=== PATIENT | female | born 1980 | race Hispanic/Latino ===

== ENCOUNTER 2018-01-22 16:30 | Inpatient (IN) | payer BC ==
[2018-01-26 16:47] VITALS: BMI 24.7
--- NOTE | 2018-01-27 15:28 | HP ---
DATE OF ADMISSION: 01/28/2018 SCHEDULED PROCEDURE: Total laparoscopic hysterectomy with bilateral salpingectomy. HISTORY OF PRESENT ILLNESS: Ms. Acosta is a 37-year-old G5, P4, AB 1 previous x4 who has a history of an intramural and subserosal posterior lower uterine segment fibroid that has grown ove r the past year. She has persistent dysmenorrhea and menorrhagia associated with it. She desires de finitive surgical management. 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 PAST MEDICAL HISTORY: Negative. PAST SURGICAL HISTORY: Gynecologic only. ALLERGIES: Denies. MEDICATIONS: None. SOCIAL HISTORY: Denies tobacco, alcohol, IV drug abuse. FAMILY HISTORY: Noncontributory. REVIEW OF SYSTEMS: Noncontributory. PHYSICAL EXAMINATION: GENERAL: female, 5 feet and 2, 145, BMI 26. VITAL SIGNS: Blood pressure 110/60, pulse 72, respirations 18. HEENT: Within normal limits. LUNGS: Clear to auscultation bilaterally. HEART: Regular rhythm. BREASTS: Soft bilaterally. ABDOMEN: Soft, nontender, no rebound or guarding. PELVIC: Vulva without lesions. Vagina without discharge. Cervix parous, uterus is anteverted with a posterior cul-de-sac mass palpable, approximately 8 week size. Adnexa no masses. EXTREMITIES: Without clubbing, cyanosis or edema. IMAGING DATA: Ultrasound in 10/2017 revealed a uterus measuring 8 x 6 cm, normal appearing right and left adnexa and a 4 cm posterior lower uterine segment, upper cervical fibroid that was subserosal i n nature, but not pedunculated. IMPRESSION: Persistent dysmenorrhea and menorrhagia associated with a posterior lower uterine segmen t fibroid. PLAN: Discussed with patient option, location, and age makes myomectomy an appropriate surgical proc edure. We will proceed with total laparoscopic hysterectomy with bilateral salpingectomy. Patient u nderstands risks and benefits of procedure and received appropriate antibiotic prophylaxis.
[2018-01-28] MEDS ORDERED: CeleCOXIB 100 MG CAP ONE (06:31)
[2018-01-28] MEDS ORDERED: Famotidine/PF 20 mg/2ml Vial ONE (06:31)
[2018-01-28] MEDS ORDERED: CEFAZOLIN/Water 2 GM/20 ML SYRINGE ONE (06:31)
[2018-01-28] MEDS ORDERED: Gabapentin 300 MG CAP ONE (06:31)
[2018-01-28] MEDS ORDERED: Bupivacaine HCl 0.5%/Epinephrine 1:200,000/PF 30 ml Vial ONE (07:04)
[2018-01-28] MEDS ORDERED: Fentanyl 100 MCG/2 ML VIAL ONE ×3 (07:35→10:26)
[2018-01-28] MEDS ORDERED: Ondansetron HCl/PF 4 MG/2 ML Vial IVP PRN ×2 (09:33→11:12)
[2018-01-28] MEDS ORDERED: Promethazine HCl 25 MG/ML VIAL IM PRN (09:33)
[2018-01-28] MEDS ORDERED: Promethazine HCl 25 MG/ML VIAL SLOW IVP PRN (09:33)
[2018-01-28] MEDS ORDERED: Zolpidem Tartrate 5 MG TAB PO PRN (11:12)
[2018-01-28] MEDS ORDERED: Simethicone Chewable 80 MG TAB PO PRN (11:12)
[2018-01-28] MEDS ORDERED: HYDROcodone/Acetaminophen 10/325 mg Tablet PO PRN ×2 (11:12)
[2018-01-28] MEDS ORDERED: Ketorolac Tromethamine 30 MG/ML VIAL IVP SCH (12:00)
[2018-01-28] MEDS: Sodium Chloride 0.9% 1,000 ML IV SCH ×2 (12:08→21:06)
--- NOTE | 2018-01-28 13:46 | OP ---
DATE OF PROCEDURE: 01/28/2018 PREOPERATIVE DIAGNOSES: Menorrhagia, dysmenorrhea, posterior lower uterine segment fibroid. POSTOPERATIVE DIAGNOSES: Menorrhagia, dysmenorrhea, posterior lower uterine segment fibroid. PROCEDURES: Total laparoscopic hysterectomy, bilateral salpingectomy. SURGEON: Manfred Gilliam M.D. SOCK AND STOCKING IRONER: Leigh So D.O. ANESTHESIA: General endotracheal, . ESTIMATED BLOOD LOSS: 100 mL MEDICATIONS: Two grams Ancef preincision. DVT PROPHYLAXIS: SCDs. DRAINS: Snyder to gravity. Approximately 350 mL byron and intraoperatively. OPERATIVE FINDINGS: 1. Approximately 8-10 weeks size uterus with 4-5 cm posterior lower uterine segment fibroid. 2. Dense adhesions of the bladder to the lower uterine segment, cervix, and upper vagina, status pos t x4. 3. Minimal omental adhesions to the anterior abdominal wall. 4. Clear urine, counts correct, hemostasis at the end of the procedure. DISPOSITION: To the recovery room in good condition. DESCRIPTION OF OPERATIVE PROCEDURE: After obtaining proper consent, the patient was taken to the ope rating room where general endotracheal anesthesia was achieved without difficulty. The patient was p repped and draped in dorsal lithotomy position. Snyder catheter placed. Side-hand speculum placed in vagina. Cervix identified, grasped with tooth tenaculum, sounded to 9-10 cm. A 4 cm vaginal deline ator and 8 cm obturator was placed in the uterus with the LEONELA manipulator. Speculum and tenaculum r emoved. Operative technique discussed. I turned my attention to the abdominal portion of the proced ure. A 5 mL of Marcaine injected at 2 cm above the umbilicus. The patient had previous vertical mid line skin incisions. A 10 mm skin incision made and a Veress needle was placed inside the abdominal cavity and confirmation of entry into the peritoneal cavity via saline drop test. Insufflation elba ed out with carbon dioxide to a max pressure of 15, volume approximately 3 liters. A 12 mm trocar wa s then introduced and confirmation entry into the peritoneal cavity without trauma to the underlying viscera was noted. Right and left lateral da King robot, trocars were placed lateral to the epigast cholo vessels and an 11 mm instruction assistant principal port in the right upper quadrant was placed. The patient was plac ed in steep Trendelenburg position and the da King robot docked with monopolar scissors in the right hand and bipolar fenestrated forceps in the left. The omental adhesions were taken down. Uterus wa s mobilized and the fallopian tube on the patient's right was excised, coagulating and transecting th rough the mesosalpinx. The utero-ovarian ligament was then coagulated and transected through the bro ad and the round. Attention was turned to the patient's left. The identical procedure was carried o ut. Anteriorly, dense adhesions of the bladder were noted to the lower uterine segment and cervix. These were taken down in a stepwise manner insufflating and deflating the bladder several times throu ghout to delineate its location and to avoid injury. Because of the dense adhesions, decision was ma de to enter into the cervical vesicle and vaginal vesicle space laterally. The cardinal ligaments we re coagulated and transected down the level of the internal cervical os. It was opened up and the ut erine vessels identified and ureters were noted to be well lateral. These were coagulated and transe cted, quite a bit of difficulty was encountered, right greater than left, secondary to the low positi on of the fibroid just above the internal cervical os posteriorly with multiple collaterals. These w ere, however, identified and taken down. Once the clear spaces laterally were reached, ability to de velop the fascial plane between the bladder and the cervix and upper vagina was facilitated and was t aken down to the appropriate level well below the vagina and the level of the incision for amputation of the specimen. Posteriorly, the peritoneum was taken off at the level of the cervical vaginal int erface and anteriorly as well. Vagina was entered anteriorly at 12 o'clock, posterior at 6 o'clock e xtended from 12 to 10 and 12 to 2 and from 6 to 4 and 6 to 8. The cardinal ligaments in the corners were then taken down with coagulation and transected until the specimen was amputated. It was then p ulled the vagina to maintain pneumoperitoneum. Suction irrigation was carried out and all area s of significant bleeding on the cuff were hemostatic using bipolar cautery and the cuff was then stephany sed using a running continuous 0 PDS Stratafix in a 2-layer closure technique. Suction irrigation wa s carried out. Good hemostasis noted on all pedicles. Tisseel was applied. All instruments were re moved. The abdomen was desufflated of carbon dioxide after undocking the da King, trocars removed. Fascia reapproximated at the supraumbilical trocar using an 0 Vicryl suture on a UR-5 needle and the skin reapproximated x4 using 4-0 Monocryl and Dermabond. Specimen removed from the vagina inspected and noted to be dry. Clear urine noted. The patient awakened, extubated, and taken to recovery [facility] in good condition.
[2018-01-28] MEDS: Ketorolac Tromethamine 30 MG/ML VIAL IVP SCH ×2 (14:58→21:03)
[2018-01-28] MEDS: Gabapentin 300 MG CAP PO SCH (21:02)
[2018-01-29] MEDS: Sodium Chloride 0.9% 1,000 ML IV SCH (01:58)
[2018-01-29] MEDS: Ketorolac Tromethamine 30 MG/ML VIAL IVP SCH ×2 (02:02→08:37)
[2018-01-29 06:45] LABS: Hemoglobin 10.2 g/dL (12.0-16.0); Mean Corpuscular HGB CONC 32.3 g/dL (32.0-36.0); Mean Corpuscular Hemoglobin 27.6 pg (27.0-31.0); Mean Corpuscular Volume 85.6 fL (78.0-98.0); Mean Platelet Volume 7.7 fL (7.4-10.4); Platelet Count 218 thou/uL (130-400); RBC Distribution Width 13.1 % (11.5-14.5); White Blood Cell (WBC) Count 13.7 thou/uL (4.8-10.8)
[2018-01-29] MEDS: Gabapentin 300 MG CAP PO SCH (08:36)
[2018-01-29 08:52] VITALS: BP 103/56; TEMP 97.8
--- NOTE | 2018-01-29 13:09 | DIS ---
DATE OF ADMISSION: 01/28/2018 DATE OF DISCHARGE: 01/29/2018 IN HOSPITAL PROCEDURE: Total laparoscopic hysterectomy, bilateral salpingectomy. SUMMARY OF HOSPITAL COURSE: The patient had an unremarkable surgical event with a TLH da King bilat eral salpingectomy secondary to fibroids and menorrhagia. Hematocrit decreased from 36% preoperative ly to 31-32% postoperatively. Vital signs are stable. Urine output was excellent, urine was clear. The Snyder was discontinued 4 hours postoperatively and patient was able to void with ease. She was tolerating p.o., ambulating and passing gas. PHYSICAL EXAMINATION: LUNGS: Physical examination revealed clear lungs. ABDOMEN: Soft, nontender, no rebound or guarding. Incisions intact, perineum dry. EXTREMITIES: Without clubbing, cyanosis or edema. IMPRESSION: Doing well status post total laparoscopic hysterectomy, bilateral salpingectomy, postop day #1. PLAN: Discharge home. Vimal Elder at [place] [facility] [place]. Follow up in 4 weeks.
== END 2018-01-29 10:10 | disposition home or self-care (01) | DRG 743 ==
LOC: SURG A 01-28 06:23 → 3SE 01-28 10:13
PROVIDERS: ADMIT Obstetrics & Gynecology; ATTEND Obstetrics & Gynecology
PROC: 0UT94ZZ Resection of Uterus, Percutaneous Endoscopic Approach (ICD-10-PCS; principal; 2018-01-28)
PROC: 0UT78ZZ Resection of Bilateral Fallopian Tubes, Via Natural or Artificial Opening Endoscopic (ICD-10-PCS; 2018-01-28)
PROC: 8E0W4CZ Robotic Assisted Procedure of Trunk Region, Percutaneous Endoscopic Approach (ICD-10-PCS; 2018-01-28)
DX: D25.1 Intramural leiomyoma of uterus (principal); N92.1 Excessive and frequent menstruation with irregular cycle; N94.6 Dysmenorrhea, unspecified; N32.89 Other specified disorders of bladder; N73.6 Female pelvic peritoneal adhesions (postinfective); N88.1 Old laceration of cervix uteri; N89.5 Stricture and atresia of vagina
CPT/HCPCS: 36415; 85027; 86850; 86900; 86901; 88307; A4216; J0670; J1885; J2270; J3010; S0028

== ENCOUNTER 2018-01-26 15:30 | Outpatient (CLI) | payer BC ==
[2018-01-26 17:11] LABS: Hemoglobin 12.3 g/dL (12.0-16.0); Mean Corpuscular HGB CONC 33.3 g/dL (32.0-36.0); Mean Corpuscular Hemoglobin 28.2 pg (27.0-31.0); Mean Corpuscular Volume 84.7 fL (78.0-98.0); Platelet Count 263 thou/uL (130-400); Red Blood Cell (RBC) Count 4.36 mill/uL (4.20-5.40); White Blood Cell (WBC) Count 5.3 thou/uL (4.8-10.8)
[2018-01-26 17:27] LABS: BHCG - Serum Negative (NEGATIVE); Pregs Control Background? CLEAR/WHITE (CLR/WHITE); Pregs Control Bar Appear? YES (CONTROL BAR)
== END 2018-01-26 15:31 | disposition home or self-care (01) ==
LOC: LABBT 15:30 → EDSTATUS 15:30 → LABBT 15:31
PROVIDERS: ATTEND Obstetrics & Gynecology
DX: Z01.812 Encounter for preprocedural laboratory examination (principal); D21.9 Benign neoplasm of connective and other soft tissue, unspecified; N92.1 Excessive and frequent menstruation with irregular cycle
CPT/HCPCS: 84703; 85027

== ENCOUNTER 2018-05-23 14:27 | Emergency (ER) | payer BC ==
[2018-05-23 15:30] LABS: Bilirubin Negative (Negative); Blood, Urine Large (Negative); Clarity CLOUDY (Clear); Glucose, Urine (Dipstick) Negative (Negative); Leukocyte Large (Negative); Nitrite Negative (Negative); Protein, Urine (Dipstick) Negative (Neg-Trace); Specific Gravity, Urine 1.015 (1.002-1.036); Urobilinogen 0.2 mg/dL (0.2-1.0); pH, Urine 5.5 (5.0-9.0)
[2018-05-23 15:33] LABS: Bacteria/HPF None Seen HPF (None Seen); Hyaline Casts/LPF 0-3 HYALINE CAST LPF (0-3 Hyaline); Pathc Cast-AUWi Flag 0.14 (0-2.49); RBC/HPF GREATER THAN 50-TNTC HPF (0-3); Squamous Epithelial 0-3 HPF (0-3)
[2018-05-23 16:09] LABS: #Basophils 0.1 thou/uL (0.0-0.2); #Eosinphils 0.2 thou/uL (0.0-0.7); #Lymphocytes 2.1 thou/uL (1.20-3.40); #Monocytes 0.4 thou/uL (0.11-0.59); #Neutrophils 5.2 thou/uL (1.40-6.50); %Basophils 0.8 % (0.0-1.0); %Eosinophils 2.1 % (0.0-10.0); %Lymphocytes 26.5 % (21.0-51.0); %Monocytes 5.5 % (0.0-10.0); %Neutrophils 65.1 % (42.0-75.0); Hemoglobin 12.5 g/dL (12.0-16.0); Mean Corpuscular HGB CONC 33.2 g/dL (32.0-36.0); Mean Corpuscular Hemoglobin 28.6 pg (27.0-31.0); Mean Corpuscular Volume 85.9 fL (78.0-98.0); Mean Platelet Volume 7.3 fL (7.4-10.4); Platelet Count 269 thou/uL (130-400); RBC Distribution Width 12.7 % (11.5-14.5); Red Blood Cell (RBC) Count 4.38 mill/uL (4.20-5.40)
[2018-05-23 16:30] LABS: ALT (SGPT) 9 U/L (8-55); AST (SGOT) 14 U/L (5-34); Alkaline Phosphatase 60 U/L (40-150); Anion Gap 11 mmol/L (10-20); BUN (Urea Nitrogen) 11 mg/dL (7.0-18.7); Bilirubin, Total 0.3 mg/dL (0.2-1.2); Calc. Creatinine Clearance 0 mL/min (70-130); Calcium 8.6 mg/dL (7.8-10.44); Carbon Dioxide 23 mmol/L (22-29); Chloride 107 mmol/L (98-107); Estimated GFR-MDRD Greater than 90; Glucose 95 mg/dL (70-105); Potassium 3.7 mmol/L (3.5-5.1); Sodium 137 mmol/L (136-145)
--- NOTE | 2018-05-23 17:42 | ULT ---
PELVIC ULTRASOUND: 05/23/18 HISTORY: Patient reports a hysterectomy in December of 2017. The patient has been having pain at the surgical si te for several months since the surgery. Also reports vaginal bleeding with clots x3 days. Real time imaging was obtained both transabdominally as well as with an endovaginal probe. The uterus has been removed. Directly in the midline adjacent to the cervical stump is a complex cystic mass me asuring approximately 6.7 cm in diameter. This is predominantly cystic but there is echogenic materia l within it which does not show any flow. I would suspect that this represents some retracted clot. Neither a right or left ovary is identified unless this represents an ovary. I do not have any histor y of whether the patient also had oophorectomy. DOPPLER EVALUATION WITH SPECTRAL ANALYSIS: There is some flow seen along the periphery of this complex cystic midline mass. IMPRESSION: 1. Postop hysterectomy change. 2. Midline complex cystic mass measuring 6.7 cm in size. This is directly adjacent to the region of the cervical stump. It is possible that this represents a large hemorrhagic cyst involving an ova ry, although it also could represent some other type of midline mass. The echogenic component within the cystic area has more of an appearance of retracted clot than soft tissue mass. There is no regulatory internship al flow demonstrated. Clinical correlation as to whether the patient also had the ovaries removed. If the patient has an ovary, I would favor that this probably represents a complex cystic mass probably a hemorrhagic cyst related to one of the ovaries. POS: BAUTISTA
--- NOTE | 2018-05-23 23:10 | CON ---
DATE OF CONSULTATION: 05/23/2018 CONSULTING PHYSICIAN: Robert Snyder DO, emergency department. CHIEF COMPLAINT: Abdominal pain and vaginal bleeding. HISTORY OF PRESENT ILLNESS: A 38-year-old G5, P4, AB1, status post total laparoscopic hysterectomy with bilateral salpingectomy in December, who presented to the emergency department for lower abdominal pain with urination for the last 3 days. She also reports vaginal bleeding today with passage of small clots. She denies any problems prior to this. She denies any problems with bowel movements. She is tolerating p.o. She reports frequent urination with dysuria for the last 3 days and feels that she goes more often since her surgery. REVIEW OF SYSTEMS: Negative for head, eyes, ears, nose, and throat; cardiovascular; respiratory; GI; ; neuro psych; musculoskeletal; skin; or constitutional symptoms other than as mentioned above. 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 PAST MEDICAL HISTORY: Negative. PAST SURGICAL HISTORY: As above. ALLERGIES: NO KNOWN DRUG ALLERGIES. MEDICATIONS: None. SOCIAL HISTORY: Negative for tobacco, alcohol, or drug abuse. FAMILY HISTORY: Noncontributory. PHYSICAL EXAMINATION: VITAL SIGNS: Afebrile. Vital signs stable. GENERAL: Awake and alert, in no acute distress. CHEST: Nonlabored. ABDOMEN: Soft and nontender to palpation. No masses. No rebound or guarding. PELVIC: Normal-appearing external female genitalia. BUS normal. Vaginal mucosa pink, moist, and lubricated. Cervix is surgically absent. Vaginal cuff appears intact and without lesions. There is no vaginal bleeding or old blood in the vault. EXTREMITIES: No edema. LABORATORY DATA: WBC 8.0, hemoglobin 12.5, hematocrit 37.6, and platelets 269, 000. Chemistry, unremarkable. Urine large blood, large leukocyte esterase, greater than 50 wbc's and rbc's. IMAGING DATA: Pelvic ultrasound revealed surgically absent uterus. A 6.7 cm midline cystic mass, possibly representing a large hemorrhagic cyst involving an ovary versus more likely a retracted clot. ASSESSMENT AND PLAN: A 38-year-old status post total laparoscopic hysterectomy with bilateral salpingectomy four months ago with abdominal pain consistent with urinary tract infection. There is no bleeding on exam whatsoever and the cuff appears intact. Her abdomen is soft and benign. The patient can be discharged home with followup with her PCP if problems continue.Gonorrhea and Chlamydia cultures were collected and a urine culture is pending. Thank you very much for this consultation. Please call me if you have any other questions. Job ID: [id number] MILTON
[2018-05-27 21:01] LABS: Chlamydia by PCR Not Detected (NotDetected); GC by PCR Not Detected (NotDetected)
== END 2018-05-23 19:30 | disposition home or self-care (01) ==
LOC: ERS 14:27
DX: R10.9 Unspecified abdominal pain (principal); R19.00 Intra-abdominal and pelvic swelling, mass and lump, unspecified site; N39.0 Urinary tract infection, site not specified
CPT/HCPCS: 36415; 76856; 80053; 81003; 81015; 85025; 87086; 87491; 87591

== ENCOUNTER 2018-11-03 13:43 | Emergency (ER) | payer BC, SELFPAY ==
[2018-11-03 14:15] LABS: Bilirubin Negative (Negative); Blood, Urine Trace (Negative); Clarity CLOUDY (Clear); Glucose, Urine (Dipstick) Negative (Negative); Leukocyte Moderate (Negative); Nitrite Negative (Negative); Protein, Urine (Dipstick) Trace mg/dL (Neg-Trace); Urobilinogen 0.2 mg/dL (0.2-1.0); pH, Urine 6.5 (5.0-9.0)
[2018-11-03 14:18] LABS: Bacteria/HPF 4+ HPF (None Seen); Hyaline Casts/LPF 0-3 HYALINE CAST LPF (0-3 Hyaline); Pathc Cast-AUWi Flag 0.27 (0-2.49); Squamous Epithelial 0-3 HPF (0-3)
[2018-11-03] MEDS ORDERED: Ibuprofen 800 MG TAB ONE (14:50)
[2018-11-03] MEDS ORDERED: Phenazopyridine HCl 97.5 MG TABLET PO SCH (15:00)
[2018-11-03] MEDS ORDERED: Phenazopyridine HCl 97.5 MG TABLET ONE (15:44)
== END 2018-11-03 15:54 | disposition home or self-care (01) ==
LOC: ERS 13:43
DX: N39.0 Urinary tract infection, site not specified (principal)
CPT/HCPCS: 81003; 81015; 99283

== ENCOUNTER 2018-12-06 08:45 | Emergency (ER) | payer BC, SELFPAY ==
[2018-12-06 09:48] LABS: #Eosinphils 0.3 thou/uL (0.0-0.7); #Lymphocytes 1.9 thou/uL (1.20-3.40); #Monocytes 0.4 thou/uL (0.11-0.59); #Neutrophils 2.4 thou/uL (1.40-6.50); %Basophils 0.6 % (0.0-1.0); %Eosinophils 5.7 % (0.0-10.0); %Lymphocytes 38.1 % (21.0-51.0); %Monocytes 7.2 % (0.0-10.0); %Neutrophils 48.4 % (42.0-75.0); Hemoglobin 14.3 g/dL (12.0-16.0); Mean Corpuscular HGB CONC 33.2 g/dL (32.0-36.0); Mean Corpuscular Hemoglobin 30.2 pg (27.0-31.0); Mean Corpuscular Volume 91.1 fL (78.0-98.0); Mean Platelet Volume 7.5 fL (7.4-10.4); Platelet Count 268 thou/uL (130-400); RBC Distribution Width 11.9 % (11.5-14.5); Red Blood Cell (RBC) Count 4.74 mill/uL (4.20-5.40); White Blood Cell (WBC) Count 4.9 thou/uL (4.8-10.8)
[2018-12-06 10:01] LABS: ALT (SGPT) 11 U/L (8-55); AST (SGOT) 15 U/L (5-34); Albumin 4.2 g/dL (3.5-5.0); Alkaline Phosphatase 74 U/L (40-150); Anion Gap 10 mmol/L (10-20); BUN (Urea Nitrogen) 12 mg/dL (7.0-18.7); Bilirubin, Total 0.3 mg/dL (0.2-1.2); Calc. Creatinine Clearance 0 mL/min (70-130); Calcium 9.4 mg/dL (7.8-10.44); Carbon Dioxide 27 mmol/L (22-29); Chloride 105 mmol/L (98-107); Estimated GFR-MDRD 84; Globulin 3.1 g/dL (2.4-3.5); Glucose 80 mg/dL (70-105); Potassium 4.3 mmol/L (3.5-5.1); Protein, Total 7.3 g/dL (6.0-8.3); Sodium 138 mmol/L (136-145)
[2018-12-06] MEDS ORDERED: Ketorolac Tromethamine 30 MG/ML VIAL ONE (10:13)
[2018-12-06] MEDS ORDERED: HYDROcodone/Acetaminophen 5/325 mg Tablet ONE (10:13)
--- NOTE | 2018-12-06 10:40 | RAD ---
XR Chest Pa Lat STANDARD History: Chest pain Comparison: None. Findings: Lungs are clear. No pneumothorax. No effusion. No acute osseous abnormality. Impression: No acute intrathoracic abnormality.
[2018-12-06 10:53] LABS: Bacteria/HPF 1+ HPF (None Seen); Bilirubin Negative (Negative); Blood, Urine Negative (Negative); Clarity Clear (Clear); Glucose, Urine (Dipstick) Normal (Negative); Leukocyte 75 Leu/uL (Negative); Nitrite Negative (Negative); Protein, Urine (Dipstick) Negative (Neg-Trace); RBC/HPF 0-3 HPF (0-3); Squamous Epithelial 0-3 HPF (0-3); Urobilinogen Normal mg/dL (Less than 2); WBC/HPF 0-3 HPF (0-3)
[2018-12-06 11:06] LABS: Pregnancy Test - Urine (BHCG) Negative (Negative); Pregu Control Background? CLEAR/WHITE (CLR/WHITE); Pregu Control Bar Appear? YES (CONTROL BAR); Specific Gravity 1.013 (1.002-1.036)
== END 2018-12-06 11:26 | disposition home or self-care (01) ==
LOC: ERS 08:45
DX: S29.012A Strain of muscle and tendon of back wall of thorax, initial encounter (principal); X50.9XXA Other and unspecified overexertion or strenuous movements or postures, initial encounter
CPT/HCPCS: 36415; 71046; 80053; 81003; 81015; 81025; 85025; 93005; 96372; J1885

== ENCOUNTER 2019-02-09 02:45 | Emergency (ER) | payer BC ==
[2019-02-09 03:13] LABS: Pregnancy Test - Urine (BHCG) Negative (Negative); Pregu Control Background? CLEAR/WHITE (CLR/WHITE); Pregu Control Bar Appear? YES (CONTROL BAR)
[2019-02-09 03:15] LABS: Bacteria/HPF None Seen HPF (None Seen); Bilirubin Negative (Negative); Blood, Urine Negative (Negative); Clarity Clear (Clear); Glucose, Urine (Dipstick) Normal (Negative); Leukocyte 500 Leu/uL (Negative); Mucous/LPF 1+ LPF (<2+); Nitrite Negative (Negative); Protein, Urine (Dipstick) 10 mg/dL (Neg-Trace); Urobilinogen Normal mg/dL (Less than 2); WBC/HPF 21-50 HPF (0-3)
[2019-02-09] MEDS ORDERED: Ketorolac Tromethamine 30 MG/ML VIAL ONE (03:31)
[2019-02-09 03:45] LABS: Anion Gap 12 mmol/L (10-20); BUN (Urea Nitrogen) 18 mg/dL (7.0-18.7); Calc. Creatinine Clearance 0 mL/min (70-130); Calcium 9.6 mg/dL (7.8-10.44); Carbon Dioxide 26 mmol/L (22-29); Chloride 105 mmol/L (98-107); Estimated GFR-MDRD 66; Glucose 94 mg/dL (70-105); Potassium 4.4 mmol/L (3.5-5.1); Sodium 139 mmol/L (136-145)
--- NOTE | 2019-02-09 08:37 | CT ---
PRELIMINARY REPORT/[facility]/EMERGENCY AFTER HOURS PROCEDURE EXAM: CT Abdomen and Pelvis Without Contrast EXAM DATE/TIME: 02/09/2019 3:19 AM CLINICAL HISTORY: 38 years old, female; Abdominal pain; Prior surgery; Patient HX: Er 7. PT reports right flank pain x 3 days, denies urinary complaints, denies nausea. Surgical history of hysterectomy, x 4. TECHNIQUE: Imaging protocol: Computed tomography of the abdomen and pelvis without contrast. COMPARISON: No relevant prior studies available. FINDINGS: Liver: Normal. No mass. Gallbladder and bile ducts: Normal. No calcified stones. No ductal dilation. Pancreas: Normal. No ductal dilation. Spleen: Normal. No splenomegaly. Adrenals: Normal. No mass. Kidneys and ureters: Normal. No hydronephrosis. Stomach and bowel: Unremarkable. No obstruction. No mucosal thickening. Appendix: Normal appendix. Intraperitoneal space: Unremarkable. No free air. No significant fluid collection. Vasculature: Unremarkable. No abdominal aortic aneurysm. Lymph nodes: Unremarkable. No enlarged lymph nodes. Bladder: Unremarkable as visualized. Reproductive: Prior hysterectomy. Ovaries remain and are normal. Bones/joints: L4-L5 and L5-S1 disc bulges. Soft tissues: Unremarkable. IMPRESSION: No acute findings. Thank you for allowing us to participate in the care of your patient. Dictated and Authenticated by: Fabien Canela MD 02/09/2019 4:09 AM Central Time ([place] & [place]) FINAL REPORT CT ABDOMEN AND PELVIS WITHOUT IV CONTRAST: FINDINGS: The liver, spleen and pancreas are unremarkable, given the limitations of an unenhanced exam. The ki dneys appear unremarkable. No hydronephrosis. No evidence of urinary calculus. The urinary bladder is contracted and not evaluated. The small bowel loops are of normal caliber. The appendix appears normal. The colon is unremarkable . No adenopathy apparent. IMPRESSION: No acute abnormality identified. I am in agreement with the preliminary report. CODE QA POS: OFF
== END 2019-02-09 04:40 | disposition home or self-care (01) ==
LOC: ERS 02:45
DX: R10.9 Unspecified abdominal pain (principal); R30.0 Dysuria; R10.819 Abdominal tenderness, unspecified site
CPT/HCPCS: 36415; 74176; 80048; 81003; 81015; 81025; 96372; J1885

== ENCOUNTER 2019-11-23 10:43 | Emergency (ER) | payer BC, OTHER ==
[2019-11-24 13:56] LABS: SARS-CoV-2 MS2 Positive; SARS-CoV-2 N Gene Positive; SARS-CoV-2 S Gene Positive; SARS-CoV-2 orf1ab Positive
== END 2019-11-23 11:15 | disposition home or self-care (01) ==
LOC: ERS 10:43
DX: U07.1 COVID-19 (principal)
CPT/HCPCS: 87635; 99283; U0003

== ENCOUNTER 2021-09-24 10:41 | Emergency (ER) | payer OTHER, SELFPAY ==
[2021-09-24 11:15] LABS: #Basophils 0.1 thou/uL (0.0-0.2); #Eosinphils 0.2 thou/uL (0.0-0.7); #Lymphocytes 2.1 thou/uL (1.20-3.40); #Monocytes 0.5 thou/uL (0.11-0.59); #Neutrophils 4.6 thou/uL (1.40-6.50); %Basophils 0.8 % (0.0-1.0); %Eosinophils 2.8 % (0.0-10.0); %Lymphocytes 28.6 % (21.0-51.0); %Monocytes 6.1 % (0.0-10.0); %Neutrophils 61.8 % (42.0-75.0); Hemoglobin 14.3 g/dL (12.0-16.0); Mean Corpuscular HGB CONC 32.3 g/dL (32.0-36.0); Mean Corpuscular Hemoglobin 29.9 pg (27.0-31.0); Mean Corpuscular Volume 92.7 fL (78.0-98.0); Mean Platelet Volume 6.9 fL (7.4-10.4); Platelet Count 288 thou/uL (130-400); RBC Distribution Width 12.1 % (11.5-14.5); Red Blood Cell (RBC) Count 4.78 mill/uL (4.20-5.40); White Blood Cell (WBC) Count 7.4 thou/uL (4.8-10.8)
[2021-09-24 11:37] LABS: ALT (SGPT) 13 U/L (8-55); AST (SGOT) 14 U/L (5-34); Albumin 4.3 g/dL (3.5-5.0); Alkaline Phosphatase 75 U/L (40-110); Anion Gap 11 mmol/L (10-20); BUN (Urea Nitrogen) 14 mg/dL (7.0-18.7); Bilirubin, Total 0.4 mg/dL (0.2-1.2); Calc. Creatinine Clearance 0 mL/min (70-130); Carbon Dioxide 26 mmol/L (22-29); Chloride 104 mmol/L (98-107); Globulin 3.1 g/dL (2.4-3.5); Glucose 96 mg/dL (70-105); Potassium 4.3 mmol/L (3.5-5.1); Protein, Total 7.4 g/dL (6.0-8.3); Sodium 137 mmol/L (136-145)
== END 2021-09-24 12:54 | disposition home or self-care (01) ==
LOC: ERS 10:41
DX: R07.89 Other chest pain (principal); R51.9 Headache, unspecified; R04.0 Epistaxis
CPT/HCPCS: 36415; 71045; 80053; 84484; 85025; 93005